=== PATIENT | female | born 2000 | race Hispanic/Latino ===

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

== ENCOUNTER 2025-02-05 14:09 | Emergency (ER) | payer SELFPAY ==
--- NOTE | 2025-02-05 14:36 | ER ---
Nurse's Notes [facility] Name: Marlene Currie Age: 24 yrs Sex: Female : 2000 Arrival Date: 02/05/2025 Time: 14:09 Bed 12 Private MD: Diagnosis: Pain in left finger(s) Presentation: 02/05 14:31 Chief complaint: Patient states: jammed her left pinky finger and it lifted her acrylic iw nail up and pulled her natural nail off the bed. Coronavirus screen: At this time, the client does not indicate any symptoms associated with coronavirus-19. Ebola Screen: No symptoms or risks identified at this time. Initial Sepsis Screen: Does the patient meet any 2 criteria? No. Patient's initial sepsis screen is negative. Does the patient have a suspected source of infection? No. Patient's initial sepsis screen is negative. Risk Assessment: Do you want to hurt yourself or someone else? Patient reports no desire to harm self or others. Onset of symptoms was February 05, 2025. 14:31 Method Of Arrival: Ambulatory iw 14:31 Acuity: MIKEY 4 iw Historical: - Allergies: 14:32 No Known Allergies; iw - Home Meds: 14:32 None [Active]; iw - PMHx: 14:32 None; iw - PSHx: 14:32 None; iw - Immunization history:: Adult Immunizations not up to date. - Infectious Disease History:: Denies. - Social history:: Smoking status: Reported history of juuling and/or vaping. Screenin:55 [facility] ED Fall Risk Assessment (Adult) History of falling in the last 3 months, kc6 including since admission No falls in past 3 months (0 pts) Confusion or Disorientation No (0 pts) Intoxicated or Sedated No (0 pts) Impaired Gait No (0 pts) Mobility Assist Device Used No (0 pt) Altered Elimination No (0 pt) Score/Fall Risk Level 0 - 2 = Low Risk Oriented to surroundings, Maintained a safe environment, Educated pt \T\ family on fall prevention, incl call for assistance when getting out of bed. Abuse screen: Denies threats or abuse. Denies injuries from another. Nutritional screening: No deficits noted. Tuberculosis screening: No symptoms or risk factors identified. Assessment: 14:55 General: Appears in no apparent distress. comfortable, well groomed, well developed, kc6 Behavior is calm, cooperative, appropriate for age. Pain: Complains of pain in left little finger. Neuro: Level of Consciousness is awake, alert, obeys commands, Oriented to person, place, time, situation, Appropriate for age. Respiratory: Airway is patent Trachea midline Respiratory effort is even, unlabored, Respiratory pattern is regular, symmetrical. Derm: Skin is intact, is healthy with good turgor, Skin is pink, warm \T\ dry. Musculoskeletal: Circulation, motion, and sensation intact. Range of motion: intact in all extremities. Vital Signs: 14:31 BP 124 / 74; Pulse 75; Resp 16; Temp 97.2; Pulse Ox 97% on R/A; Weight 101.6 kg; Height iw 5 ft. 2 in. ; Pain 5/10; 14:31 Body Mass Index 40.97 (101.60 kg, 157.48 cm) iw 14:31 Pain Scale: Adult iw ED Course: 14:15 Patient arrived in ED. al6 14:15 Pedro Smith FNP-C is PHCP. dr5 14:15 José Miguel Lozano DO is Attending Physician. dr5 14:32 Triage completed. iw 14:33 Arm band placed on. iw 14:35 Rafat Wilhelm DO is Referral Physician. ms3 14:46 Laila Castro, RN is Primary Nurse. kc6 14:54 Patient has correct armband on for positive identification. Bed in low position. Call kc6 light in reach. Side rails up X 1. Adult w/ patient. Pulse ox on. NIBP on. Door closed. Noise minimized. Lights dimmed. Pillow given. Verbal reassurance given. 14:54 No provider procedures requiring assistance completed. Patient did not have IV access kc6 during this emergency room visit. Aluminum finger splint applied to left pinky. Administered Medications: 14:54 Drug: Bacitracin Topical Ointment (500 unit/g) 1 application Topical once Route: kc6 Topical; Site: left hand; Medication: 14:56 VIS not applicable for this client. kc6 Outcome: 14:36 Discharge ordered by . ms3 14:55 Discharged to home ambulatory, with significant other, kc6 14:55 Condition: good 14:55 Discharge instructions given to patient, significant other, Instructed on discharge instructions, follow up and referral plans. wound care, Demonstrated understanding of instructions, follow-up care, 14:56 Patient left the ED. kc6 Signatures: Zainab Valero, RN RN iw José Miguel Lozano DO DO ms3 Laila Castro RN RN kc6 Pedro Smith, METAPHYSICS TEACHER-C METAPHYSICS TEACHER-Cdr5 Marta Carvalho6
--- NOTE | 2025-02-05 14:36 | EDPHYS ---
Physician Documentation [facility] Name: Marlene Currie Age: 24 yrs Sex: Female : 2000 Arrival Date: 02/05/2025 Time: 14:09 Bed 12 Private MD: ED Physician José Miguel Lozano HPI: 02/05 14:33 This 24 yrs old Female presents to ER via Ambulatory with complaints of Finger ms3 Injury. 14:33 24-year-old female with no past medical history presents to the emergency department ms3 for left small finger pain after her left nail was elevated off the nail bed last night. Patient states her pain is currently 5/10. Patient denies any alleviating or inciting factors.. Historical: - Allergies: 14:32 No Known Allergies; iw - Home Meds: 14:32 None [Active]; iw - PMHx: 14:32 None; iw - PSHx: 14:32 None; iw - Immunization history:: Adult Immunizations not up to date. - Infectious Disease History:: Denies. - Social history:: Smoking status: Reported history of juuling and/or vaping. ROS: 14:33 Constitutional: Negative for fever, and chills. Cardiovascular: Negative for chest ms3 pain, and palpitations. Respiratory: Negative for shortness of breath, cough, wheezing, and pleuritic chest pain, Abdomen/GI: Negative for abdominal pain, nausea, vomiting, diarrhea, and constipation, 14:33 MS/extremity: Positive for Left small finger pain, Exam: 14:33 Constitutional: This is a well developed, well nourished patient who is awake, alert, ms3 and in no acute distress. Cardiovascular: Regular rate and rhythm with a normal S1 and S2. No gallops, murmurs, or rubs. Normal PMI, no JVD. No pulse deficits. Respiratory: Lungs have equal breath sounds bilaterally, clear to auscultation and percussion. No rales, rhonchi or wheezes noted. No increased work of breathing, no retractions or nasal flaring. Abdomen/GI: Soft, non-tender, with normal bowel sounds. No distension or tympany. No guarding or rebound. No evidence of tenderness throughout. 14:33 Musculoskeletal/extremity: Extremities: noted in the Left small finger nail: pain, tenderness, Vital Signs: 14:31 BP 124 / 74; Pulse 75; Resp 16; Temp 97.2; Pulse Ox 97% on R/A; Weight 101.6 kg; Height iw 5 ft. 2 in. ; Pain 5/10; 14:31 Body Mass Index 40.97 (101.60 kg, 157.48 cm) iw 14:31 Pain Scale: Adult iw MDM: 14:16 Medical Screening Exam initiated dr5 14:33 Differential diagnosis: Left small finger pain versus nail injury. Data reviewed: vital ms3 signs, nurses notes, and as a result, I will discharge patient. I considered the following discharge prescriptions or medication management in the emergency department Medications were administered in the Emergency Department. See MAR. Counseling: I had a detailed discussion with the patient and/or guardian regarding the historical points, exam findings, and any diagnostic results supporting the discharge/admit diagnosis, the need for outpatient follow up, to return to the emergency department if symptoms worsen or persist or if there are any questions or concerns that arise at home. Special discussion: I discussed with the patient/guardian in detail that at this point there is no indication for admission to the hospital. It is understood, however, that if the symptoms persist or worsen the patient needs to return immediately for re-evaluation. ED course: Discussed physical exam findings with patient. Discussed with patient Triple Antibiotic ointment and washing with soap and water. Patient understands agrees with plan. All questions were answered. Return precautions discussed include worsening symptoms, or any other concerns. Patient to follow-up Dr. Wilhelm in 2 to 3 days.. 02/05 14:33 Order name: Finger Splint; Complete Time: 14:47 ms3 Administered Medications: 14:54 Drug: Bacitracin Topical Ointment (500 unit/g) 1 application Topical once Route: kc6 Topical; Site: left hand; Disposition Summary: 02/05/25 14:36 Discharge Ordered Notes: Location: Home ms3 Condition: Stable ms3 Diagnosis - Pain in left finger(s) ms3 Followup: ms3 - With: Rafat Wilhelm DO - When: 2 - 3 days - Reason: Recheck today's complaints Discharge Instructions: - Discharge Summary Sheet ms3 - Nail Bed Injury, [id number] ms3 Forms: - Medication Reconciliation Form ms3 - Antibiotic Education ms3 - Prescription Opioid Use ms3 - Patient Portal Instructions ms3 - Leadership Thank You Letter ms3 Signatures: Zainab Valero, RN RN iw José Miguel Lozano, DO JOHNSON ms3 Laila Castro RN RN kc6 Pedro Smith, MERLYN-C DB2 DEVELOPER-[facility]5
[2025-02-05 15:00] VITALS: BP 124/74; TEMP 97.2; O2SAT 97
== END 2025-02-05 14:56 | disposition home or self-care (01) ==
LOC: ER 14:09
DX: M79.645 Pain in left finger(s) (principal)
CPT/HCPCS: 99284